=== PATIENT | male | born 1960 | race Caucasian/White ===

== ENCOUNTER 2018-05-17 13:06 | Emergency (ER) | payer BC ==
--- NOTE | 2018-05-17 13:17 | ER Report ---
History and Physical Time Seen By MD: 13:17 HPI/ROS CHIEF COMPLAINT: Numbness and tingling in extremities HISTORY OF PRESENT ILLNESS: This is a 57-year-old male who presents to the emergency department for numbness and tingling in the extremity. Patient states this morning while he was at work he began to have some difficulties formulating his thoughts and began to have some numbness and tingling in both of his upper and lower extremities. Denies headache or visual changes no chest pain or shortness of breath no nausea or vomiting. Patient became concerned and ultimately decided come in for further evaluation. A history of BPH and has been evaluated by a specialist in [place]. Patient also has beta thalassemia. REVIEW OF SYSTEMS: Constitutional: No fever, no chills. Eyes: No discharge. ENT: No sore throat. Cardiovascular: No chest pain, no palpitations. Respiratory: No cough, no shortness of breath. Gastrointestinal: No abdominal pain, no vomiting. Genitourinary: No hematuria. Musculoskeletal: No back pain. Skin: No rashes. Neurological: As above. Allergies: Coded Allergies: Penicillins (Verified Allergy, Unknown, 05/17/18) Home Meds Active Scripts Montelukast Sodium (SINGULAIR) 10 Mg Tablet, 1 TAB PO QDAY for 60 Days, #60 TAB Prov:WINSOMEJALILSAGE Annita [facility]- 05/17/18 Reported Medications Albuterol Sulfate (PROVENTIL HFA) 6.7 Gm Inh, 2 PUFF INH Q4-6H, INH 05/17/18 Fexofenadine Hcl (DARINEL ALLERGY) 60 Mg Tablet, 30 MG PO BID 05/17/18 Tamsulosin Hcl (FLOMAX) 0.4 Mg Cap.er.24h, 0.4 MG PO, CAP 05/17/18 Finasteride (PROSCAR) 5 Mg Tablet, 5 MG PO QDAY 05/17/18 Past Medical/Surgical History The patient has a past medical and surgical history of beta thalassemia, asthma and prostatitis. Reviewed Nurses Notes: Yes Constitutional Vital Sign - Last 24 Hours 05/17/18 13:24 Temp 97.6 Pulse 80 Resp 16 B/P (MAP) 150/89 Pulse Ox 90 O2 Delivery Room Air Physical Exam General Appearance: The patient is alert, has no immediate need for airway protection and no signs of toxicity. Eyes: Pupils equal and round no pallor or injection. EOMs intact. No nystagmus. ENT, Mouth: Mucous membranes are moist. Respiratory: There are no retractions, lungs are clear to auscultation. Cardiovascular: Regular rate and rhythm. Gastrointestinal: Abdomen is soft and non tender, no masses, bowel sounds normal. Neurological: Alert and oriented 4. Moving all extremities. Following all commands. No focal neuro deficits. Cranial nerves II through XII intact. Skin: Warm and dry, no rashes. Musculoskeletal: Neck is supple non tender. Extremities are nontender, nonswollen and have full range of motion. DIFFERENTIAL DIAGNOSIS: After history and physical exam differential diagnosis was considered for intracranial hemorrhage, mass, multiple sclerosis, anxiety and electrolyte abnormalities. Medical Decision Making Data Points Result Diagram: 05/17/18 1413 05/17/18 1413 Laboratory Hematology Test 05/17/18 14:13 Red Blood Count 6.36 M/uL (4.00-5.60) Mean Corpuscular Volume 64.0 fL (80.0-96.0) Mean Corpuscular Hemoglobin 21.2 pg (26.0-33.0) Mean Corpuscular Hemoglobin Concent 33.1 g/dL (32.0-36.0) Red Cell Distribution Width 17.6 % (11.5-14.5) Mean Platelet Volume 8.9 fL (7.2-11.1) Neutrophils (%) (Auto) % (39.4-72.5) Lymphocytes (%) (Auto) % (17.6-49.6) Monocytes (%) (Auto) % (4.1-12.4) Eosinophils (%) (Auto) % (0.4-6.7) Basophils (%) (Auto) % (0.3-1.4) Nucleated RBC Relative Count (auto) /100WBC Neutrophils # (Auto) K/uL (2.0-7.4) Lymphocytes # (Auto) K/uL (1.3-3.6) Monocytes # (Auto) K/uL (0.3-1.0) Eosinophils # (Auto) K/uL (0.0-0.5) Basophils # (Auto) K/uL (0.0-0.1) Nucleated RBC Absolute Count (auto) K/uL Neutrophils % (Manual) 47 % (39.4-72.5) Band Neutrophils % 1 % Lymphocytes % (Manual) 38 % (17.6-49.6) Atypical Lymphocytes % 1 % Monocytes % (Manual) 3 % (4.1-12.4) Eosinophils % (Manual) 10 % (0.4-6.7) Basophils % (Manual) 0 % (0.3-1.4) Platelet Estimate Normal Hypochromasia 2 Microcytosis 3+ Target Cells 2+ Ovalocytes 1+ Sodium Level 139 mmol/L (137-145) Potassium Level 3.7 mmol/L (3.5-5.0) Chloride Level 104 mmol/L (98-107) Carbon Dioxide Level 27 mmol/L (22-30) Blood Urea Nitrogen 21 mg/dl (9-21) Creatinine 1.00 mg/dl (0.66-1.25) Glomerular Filtration Rate Calc > 60.0 Random Glucose 131 mg/dl (75-110) Calcium Level 9.3 mg/dl (8.4-10.2) Total Bilirubin 0.6 mg/dl (0.2-1.3) Aspartate Amino Transf (AST/SGOT) 30 U/L (0-35) Alanine Aminotransferase (ALT/SGPT) 41 U/L (0-56) Alkaline Phosphatase 42 U/L (0-126) Total Protein 6.8 g/dl (6.3-8.2) Albumin 4.1 g/dl (3.5-5.0) Chemistry Test 05/17/18 14:13 White Blood Count 5.9 k/uL (4.5-11.0) Red Blood Count 6.36 M/uL (4.00-5.60) Hemoglobin 13.5 g/dL (14.0-18.0) Hematocrit 40.7 % (42.0-52.0) Mean Corpuscular Volume 64.0 fL (80.0-96.0) Mean Corpuscular Hemoglobin 21.2 pg (26.0-33.0) Mean Corpuscular Hemoglobin Concent 33.1 g/dL (32.0-36.0) Red Cell Distribution Width 17.6 % (11.5-14.5) Platelet Count 178 K/uL (150-450) Mean Platelet Volume 8.9 fL (7.2-11.1) Neutrophils (%) (Auto) % (39.4-72.5) Lymphocytes (%) (Auto) % (17.6-49.6) Monocytes (%) (Auto) % (4.1-12.4) Eosinophils (%) (Auto) % (0.4-6.7) Basophils (%) (Auto) % (0.3-1.4) Nucleated RBC Relative Count (auto) /100WBC Neutrophils # (Auto) K/uL (2.0-7.4) Lymphocytes # (Auto) K/uL (1.3-3.6) Monocytes # (Auto) K/uL (0.3-1.0) Eosinophils # (Auto) K/uL (0.0-0.5) Basophils # (Auto) K/uL (0.0-0.1) Nucleated RBC Absolute Count (auto) K/uL Neutrophils % (Manual) 47 % (39.4-72.5) Band Neutrophils % 1 % Lymphocytes % (Manual) 38 % (17.6-49.6) Atypical Lymphocytes % 1 % Monocytes % (Manual) 3 % (4.1-12.4) Eosinophils % (Manual) 10 % (0.4-6.7) Basophils % (Manual) 0 % (0.3-1.4) Platelet Estimate Normal Hypochromasia 2 Microcytosis 3+ Target Cells 2+ Ovalocytes 1+ Glomerular Filtration Rate Calc > 60.0 Calcium Level 9.3 mg/dl (8.4-10.2) Total Bilirubin 0.6 mg/dl (0.2-1.3) Aspartate Amino Transf (AST/SGOT) 30 U/L (0-35) Alanine Aminotransferase (ALT/SGPT) 41 U/L (0-56) Alkaline Phosphatase 42 U/L (0-126) Total Protein 6.8 g/dl (6.3-8.2) Albumin 4.1 g/dl (3.5-5.0) EKG/Imaging Imaging Head CT scan without contrast COMPARISONS: None ADDITIONAL PERTINENT HISTORY: Numbness and tingling in the extremities with difficulty concentrating TECHNIQUE: Multiple axial images were obtained from the skull base to the vertex without IV contrast. One of the following dose optimization techniques was utilized in the performance of this exam: Automated exposure control; adjustment of the mA and/or kV according to the patient's size; or use of an iterative reconstruction technique. Specific details can be referenced in the facility's radiology CT exam operational policy. FINDINGS: Midline shift: Negative Ventricles: Negative Brain parenchyma: Negative Extra-axial spaces: Negative Intracranial vasculature: Negative Osseous structures: Negative Paranasal sinuses and mastoid air cells: Moderate mucosal thickening involving both maxillary sinuses. Otherwise negative Surrounding soft tissues and orbits: Negative IMPRESSION: 1. No evidence of acute intracranial pathology. 2. Mild underlying paranasal sinus disease. Report Dictated By: Bayron Flores MD at 05/17/2018 3:50 PM Report E-Signed By: Bayron Flores MD at 05/17/2018 3:52 PM [id number] ED Course/Re-evaluation ED Course The patient was admitted to room. A history and physical were obtained. Differential diagnoses were considered. An IV was started. A CBC, CMP were obtained. H&H showing 13.5 and 40.7. Patient does have a history of beta thalassemia. Blood sugar 131. Otherwise lab studies unremarkable. Head CT negative for any acute intracranial process. I did review these results with the patient and his . I did tell the patient that the likelihood of a stroke with numbness and tingling in bilateral upper and lower extremities at the same time is very low, but I did encourage him to establish and follow up with his primary care provider for continued observation and management of his asthma and beta thalassemia. The patient states that his symptoms have mostly resolved and all of the extremities. Patient denied headaches, visual changes, chest pain or shortness of breath while in the ER and during the height of his episode. The patient was relieved that there was no sign of intracranial abnormality. The patient was discharged home. Decision to Disposition Date: May 17, 2018 Decision to Disposition Time: 16:18 Depart Departure Latest Vital Signs Vital Signs Date Time Temp Pulse Resp B/P (MAP) Pulse Ox O2 Delivery O2 Flow Rate FiO2 05/17/18 13:24 97.6 80 16 150/89 90 Room Air Impression: Primary Impression: Numbness and tingling in both hands Additional Impression: Numbness and tingling of both feet Condition: Improved Disposition: HOME OR SELF-CARE New Scripts Montelukast Sodium (SINGULAIR) 10 Mg Tablet 1 TAB PO QDAY for 60 Days, #60 TAB Prov: SAGE SCHUMACHER CHIEF PSYCHOLOGY- 05/17/18 Additional Instructions: There was no sign of an acute abnormality your CAT scan today. Blood work consistent with your beta thalassemia. Please establish with a primary care provider within 1-2 weeks for reevaluation of the improving numbness and tingling in the extremities. Follow-up with your primary care provider for repeat laboratory studies. Take your medications as prescribed. Drink plenty of water. Get plenty of rest. Return to the emergency department for any other concerns or worsening symptoms. Problem Qualifiers SAGE SCHUMACHER CHIEF PSYCHOLOGY-BC May 17, 2018 13:17
[2018-05-17] MEDS ORDERED: FINA5TAB64 PO (13:21)
[2018-05-17] MEDS ORDERED: ALB6.7R INH (13:23)
[2018-05-17] MEDS ORDERED: FEXO-72 PO (13:23)
[2018-05-17] MEDS ORDERED: TAMS0.4C25 PO (13:23)
[2018-05-17 13:24] VITALS: BP 150/89
[2018-05-17 14:28] LABS: PLATELET COUNT, AUTOMATED 178 K/uL (150-450)
--- NOTE | 2018-05-17 15:57 | RADIOLOGY IMAGING REPORT ---
FACILITY: [facility] PATIENT NAME: Suman Baez : 1960 MR: [id number] V: [id number] EXAM DATE: ORDERING PHYSICIAN: SAGE SCHUMACHER TECHNOLOGIST: Location: [facility] [place] Patient: Suman Baez : 1960 Visit/Account:[id number] Date of Sevice: 05/17/[address] scan without contrast COMPARISONS: None ADDITIONAL PERTINENT HISTORY: Numbness and tingling in the extremities with difficulty concentrating TECHNIQUE: Multiple axial images were obtained from the skull base to the vertex without IV contrast . One of the following dose optimization techniques was utilized in the performance of this exam: Aut omated exposure control; adjustment of the mA and/or kV according to the patient's size; or use of an iterative reconstruction technique. Specific details can be referenced in the facility's radiology CT exam operational policy. FINDINGS: Midline shift: Negative Ventricles: Negative Brain parenchyma: Negative Extra-axial spaces: Negative Intracranial vasculature: Negative Osseous structures: Negative Paranasal sinuses and mastoid air cells: Moderate mucosal thickening involving both maxillary sinuse s. Otherwise negative Surrounding soft tissues and orbits: Negative IMPRESSION: 1. No evidence of acute intracranial pathology. 2. Mild underlying paranasal sinus disease. Report Dictated By: Bayron Flroes MD at 05/17/2018 3:50 PM Report E-Signed By: Bayron Flores MD at 05/17/2018 3:52 PM WSN:[id number]
[2018-05-17] MEDS ORDERED: MONT10TA PO (16:26)
== END 2018-05-17 16:47 | disposition home or self-care (01) ==
LOC: ER 13:21
DX: R20.0 Anesthesia of skin (principal); R20.2 Paresthesia of skin
CPT/HCPCS: 70450; 82040; 82247; 82310; 82374; 82435; 82565; 82947; 84075; 84132; 84155; 84295; 84450; 84460; 84520; 85025; 99284